=== PATIENT | male | born 1990 | race Two or more races ===

== ENCOUNTER → 2019-06-30 | Outpatient (CLI) | payer OTHER | END | disposition home or self-care (01) | LOC: LAB 14:42 | PROVIDERS: ATTEND Physician Assistant | DX: Z03.818 Encounter for observation for suspected exposure to other biological agents ruled out (principal) ==

== ENCOUNTER 2024-10-01 06:09 | Inpatient (IN) | payer BC, OTHER ==
[~2024-10-01] VITALS: Ht 180.3 cm; Wt 78.8 kg
--- NOTE | 2024-10-01 07:13 | ED.PDOC ---
History of Present Illness HPI Comments 34-year-old male complaining of abdominal pain which started yesterday progress to this morning. He did finish his work shift. Nausea but no vomiting or diarrhea. Pain is mostly in the right lower quadrant. 08/14. Never had this kind of symptom in the past. Denies any other past medical surgical history. Chief Complaint: Abdominal Pain Time Seen by MD: 06:37 Reviewed Notes: Nurses Notes, Medications, Allergies Allergies: Coded Allergies: NO KNOWN ALLERGIES (Unverified , 10/01/24) Home Meds No Active Prescriptions or Reported Meds Information Source: Patient Mode of Arrival: Ambulatory Severity: Moderate Timing: Days Duration: Since onset Past Medical History PAST MEDICAL HISTORY: Denies Surgical History: Denies all surgeries Social History Smoker: Non-Smoker Alcohol: Denies ETOH Use Drugs: Denies Drug Use Constitutional: denies: chills, diaphoresis, fatigue, fever, malaise, sweats, weakness, others EENTM: denies: blurred vision, double vision, ear bleeding, ear discharge, ear drainage, ear pain, ear ringing, eye pain, eye redness, hearing loss, mouth pain, mouth swelling, nasal discharge, nose bleeding, nose congestion, nose pain, photophobia, tearing, throat pain, throat swelling, voice changes, others Respiratory: denies: cough, hemoptysis, orthopnea, SOB at rest, shortness of breath, SOB with excertion, stridor, wheezing, others Gastrointestinal: reports: abdominal pain, nausea; denies: abdomen distended, blood streaked bowels, constipated, diarrhea, dysphagia, difficulty swallowing, hematemesis, melena, poor appetite, poor fluid intake, rectal bleeding, rectal pain, vomiting, others Genitourinary: denies: burning, dysuria, flank pain, frequency, hematuria, incontinence, penile discharge, penile sore, pain, testicle pain, testicle swelling, urgency, others Neurological: denies: dizziness, fainting, headache, left sided numbness, left sided weakness, numbness, paresthesia, pre-existing deficit, right sided numbness, right sided weakness, seizure, speech problems, tingling, tremors, weakness, others Musculoskeletal: denies: back pain, gout, joint pain, joint swelling, muscle pain, muscle stiffness, neck pain, others Integumetry: denies: bruises, change in color, change in hair/nails, dryness, laceration, lesions, lumps, rash, wounds, others Allergic/Immunocompromised: denies: Difficulty Healing, Frequent Infections, Hives, Itching, others Hematologic/Lymphatic: denies: anemia, blood clots, easy bleeding, easy bruising, swollen glands, others Endocrine: denies: excessive hunger, excessive sweating, excessive thirst, excessive urination, flushing, intolerance to cold, intolerance to heat, unexplained weight gain, unexplained weight loss, others Psychiatric: denies: anxiety, bipolar disorder, depression, hopeless, panic disorder, schizophrenia, sleepless, suicidal, others Physical Exam General Appearance: Moderate Distress HEENT: Normal ENT Inspection, Pharynx Normal, TMs Normal Neck: Full Range of Motion, Non-Tender, Normal, Normal Inspection Respiratory: Chest Non-Tender, Lungs Clear, No Accessory Muscle Use, No Respiratory Distress, Normal Breath Sounds Cardiovascular: No Edema, No JVD, No Murmur, No Gallop, Normal Peripheral Pulses, Regular Rate/Rhythm Breast Exam: Deferred Gastrointestinal: Diffuse, No Organomegaly, No Pulsatile Mass, Normal Bowel Sounds, Soft Genitalia: Deferred Pelvic: Deferred Rectal: Deferred Extremities: No calf tenderness, Normal capillary refill, Normal inspection, Normal range of motion, Non-tender, No pedal edema Musculoskeletal : Apperance: Normal Neurologic: Alert, tap builder II-XII nml as Tested, No Motor Deficits, Normal Affect, Normal Mood, No Sensory Deficits Cerebellar Function: Normal Reflexes: Normal Skin: Dry, Normal Color, Warm Peripheral Pulses: 3+ Radial (R), 3+ Radial (L) Lymphatic: No Adenopathy Was a procedure done? Was a procedure done?: No Differential Dx Considerations may include: Anemia Electrolyte imbalance X-Ray, Labs, Meds, VS Vital Signs Date Time Temp Pulse Resp B/P (MAP) Pulse Ox O2 Delivery O2 Flow Rate FiO2 10/01/24 14:00 75 12 100/54 (69) 95 10/01/24 13:00 78 15 93/53 (66) 95 10/01/24 12:00 72 12 97/56 (70) 97 10/01/24 11:45 70 13 98/57 (71) 99 10/01/24 11:45 70 13 99 Room Air* 0 21 10/01/24 08:53 87 18 99 Room Air* 0 21 10/01/24 08:53 97.9 86 18 122/81 (95) 99 97.9 10/01/24 07:46 99 18 106/75 10/01/24 06:10 98.3 99 18 106/75 99 98.3 Lab Test 10/01/24 07:21 Range/Units White Blood Count 11.9 H 4.4-10.8 10^3/uL Red Blood Count 4.64 4.5-5.90 10^6/uL Hemoglobin 14.5 13.5-17.5 g/dL Hematocrit 42.0 41.0-53.0 % Mean Corpuscular Volume 90.5 80.0-100.0 fL Mean Corpuscular Hemoglobin 31.2 28.0-32.0 pg Mean Corpuscular Hemoglobin Concent 34.5 32.0-36.0 g/dL Red Cell Distribution Width 13.1 11.8-14.3 % Platelet Count 185 140-450 10^3/uL Mean Platelet Volume 10.0 6.9-10.8 fL Neutrophils (%) (Auto) 69.9 37.0-80.0 % Lymphocytes (%) (Auto) 17.1 10.0-50.0 % Monocytes (%) (Auto) 12.4 H 0.0-12.0 % Eosinophils (%) (Auto) 0.1 0.0-7.0 % Basophils (%) (Auto) 0.5 0.0-2.0 % Neutrophils # (Auto) 8.3 1.6-8.6 10 ^3/uL Lymphocytes # (Auto) 2.0 0.4-5.4 10 ^3/uL Monocytes # (Auto) 1.5 H 0-1.3 10 ^3/uL Eosinophils # (Auto) 0 0-0.8 10 ^3/uL Basophils # (Auto) 0.1 0-0.2 10 ^3/uL Nucleated Red Blood Cells 0.0 % Sodium Level 138 136-145 mmol/L Potassium Level 4.0 3.5-5.1 mmol/L Chloride Level 101 98-107 mmol/L Carbon Dioxide Level 27 20-31 mmol/L Anion Gap 10 5-15 Blood Urea Nitrogen 10 9-23 mg/dL Creatinine 1.08 0.700-1.30 mg/dL Glomerular Filtration Rate Calc 94 >90 mL/min BUN/Creatinine Ratio 9.3 L 10.0-20.0 Serum Glucose 105 74-106 mg/dL Calcium Level 9.3 8.7-10.4 mg/dL Current Medications Medications (Trade) Dose Ordered Sig/Sharmaine Route Start Time Stop Time Status Last Admin Cefazolin Sodium 50 ml @ 100 mls/hr ONCE ONCE IV 10/01/24 07:15 10/01/24 07:44 DC 10/01/24 07:46 Metronidazole 100 ml @ 100 mls/hr ONCE ONCE IV 10/01/24 07:15 10/01/24 08:14 DC 10/01/24 07:46 Sodium Chloride 1,000 ml @ 1,000 mls/hr Q1H ONCE IV 10/01/24 07:15 10/01/24 08:14 DC 10/01/24 07:37 Morphine Sulfate 4 mg ONCE ONCE IV 10/01/24 07:30 10/01/24 07:31 DC 10/01/24 07:46 Ondansetron HCl (Zofran) 4 mg ONCE ONCE IV 10/01/24 07:30 10/01/24 07:31 DC 10/01/24 07:44 Patient alert. Complaining of abdominal pain. Vitals stable. Answering questions. Abdomen is soft. CT scan of the abdomen does show a appendicitis. Establish intravenous access. Was given fluids pain Was given morphine. Was given Zofran. Explained to the patient. Continue monitoring. Time of 1ST Reevaluation: 07:11 Reevaluation 1ST: Unchanged Patient Education/Counseling: Diagnosis, Treatment, Prognosis, Need For Follow Up Family Education/Counseling: No Family Present SEPSIS Sepsis Screen Date sepsis recognized/suspect: Oct 01, 2024 Time Sepsis recognized/suspect: 613 Recent Procedure: No On Antibiotic Therapy: No Respiratory Rate >20: No Heart Rate >90: Yes Temp<36 C (96.8 F) or >38.3 C: No SBP <90 or MAP <65 mmHG: No New Acute Mental Status Change: No Is the patient on CPAP, BIPAP,: No Physician Orders Ct Ab Pel Wo Con-No Oral Or Iv (10/01/24 06:37) * Surgical Consult (10/01/24 13:36) Vital Signs Date Time Temp Pulse Resp B/P (MAP) Pulse Ox O2 Delivery O2 Flow Rate FiO2 10/01/24 14:00 75 12 100/54 (69) 95 10/01/24 13:00 78 15 93/53 (66) 95 10/01/24 12:00 72 12 97/56 (70) 97 10/01/24 11:45 70 13 98/57 (71) 99 10/01/24 11:45 70 13 99 Room Air* 0 21 10/01/24 08:53 87 18 99 Room Air* 0 21 10/01/24 08:53 97.9 86 18 122/81 (95) 99 97.9 10/01/24 07:46 99 18 106/75 10/01/24 06:10 98.3 99 18 106/75 99 98.3 Laboratory Tests Test 10/01/24 07:21 White Blood Count 11.9 10^3/uL (4.4-10.8) H Medications Medications Dose Ordered Sig/Sharmaine Route Start Time Stop Time Status Last Admin Dose Admin Cefazolin Sodium 50 ml @ 100 mls/hr ONCE ONCE IV 10/01/24 07:15 10/01/24 07:44 DC 10/01/24 07:46 Metronidazole 100 ml @ 100 mls/hr ONCE ONCE IV 10/01/24 07:15 10/01/24 08:14 DC 10/01/24 07:46 Morphine Sulfate 4 mg ONCE ONCE IV 10/01/24 07:30 10/01/24 07:31 DC 10/01/24 07:46 Ondansetron HCl 4 mg ONCE ONCE IV 10/01/24 07:30 10/01/24 07:31 DC 10/01/24 07:44 Sodium Chloride 1,000 ml @ 1,000 mls/hr Q1H ONCE IV 10/01/24 07:15 10/01/24 08:14 DC 10/01/24 07:37 Departure 1 Departure Time of Disposition: 17:55 Impression: Primary Impression: Acute appendicitis Qualified Codes: K35.80 - Unspecified acute appendicitis Disposition: 09 ADMITTED INPATIENT Admit to: Med Surg Condition: Guarded e-Prescriptions No Active Prescriptions or Reported Meds Critical Care Note Critical Care Time?: Yes (90 min-critical care time only) Stability Stability form required: No Heart Score Heart Score: Heart Score Response (Comments) Value History N/A 0 EKG N/A 0 Age N/A 0 Risk Factors N/A 0 Troponin N/A 0 Total 0 I personally scribed for ALANIS CHEEK MD ([email or web address]) on 10/01/24 at 07:49. Electronically submitted by Monty Davis ([email or web address]). ALANIS CHEEK MD Oct 01, 2024 07:13
--- NOTE | 2024-10-01 07:17 | DVH ---
CLINICAL INFORMATION: Right lower quadrant pain. TECHNIQUE: Axial CT images of the abdomen and pelvis were obtained without IV contrast. Coronal and s agittal reformatted images were obtained, reviewed, and stored. Evaluation of the parenchymal organs is limited without IV contrast. Oral contrast was administered prior to the examination. All CT scans at this medical facility are performed using dose modulation techniques as appropriate to a performe d exam including the following: Automated exposure control was utilized; adjustment of the MA and/or KV according to patient size; and use of iterative reconstruction technique. CTDIvol = 7.29 mGy DLP = 391.57 mGy-cm COMPARISON: None FINDINGS: Lung bases: Lung bases are clear. Liver: Grossly unremarkable in its noncontrast enhanced appearance. No abnormal density or focal lesi on identified. Biliary: No calcified gallstones or biliary ductal dilatation. Spleen: Unremarkable. Pancreas: Grossly unremarkable in its noncontrast enhanced appearance. Adrenal glands: Unremarkable. No mass. Kidneys: No hydronephrosis. No renal or ureteral calculi. Aorta/Vascular: No aneurysm or significant calcification. Retroperitoneum: No mass or lymphadenopathy. Bowel/mesentery: No small bowel obstruction. No free air or free fluid. Appendix is abnormally thicke ghislaine, measuring up to 1.4 cm in diameter with moderate periappendiceal stranding consistent with acute appendicitis in the appropriate clinical setting. Mild wall thickening at the adjacent portions of t he cecum, likely inflammatory in nature. No evidence of abscess or perforation. Pelvic organs: Grossly unremarkable. Bladder: Unremarkable. No mass. Abdominal wall: No mass or hernia. Bones: No acute fracture or suspicious intraosseous lesion. IMPRESSION: Findings consistent with acute, uncomplicated appendicitis. Critical findings Critical Result: Acute appendicitis. Findings discussed with Dr. Jeffrey, at 10/01/2024 09:12 AM CDT, and acknowledged receipt and underst anding of the findings. ..
[2024-10-01 07:37] LABS: Chloride 101 mmol/L (98-107); Potassium 4.0 mmol/L (3.5-5.1); Sodium 138 mmol/L (136-145)
[2024-10-01] MEDS: SODIUM CHLORIDE 0.9% 1,000 ML IV ONE ×2 (07:37→16:33)
[2024-10-01 07:38] LABS: Anion Gap 10 (5-15); Calcium 9.3 mg/dL (8.7-10.4); Carbon Dioxide 27 mmol/L (20-31)
[2024-10-01 07:43] LABS: BUN/Creatinine Ratio 9.3 (10.0-20.0); Blood Urea Nitrogen 10 mg/dL (9-23); Glucose 105 mg/dL (74-106)
[2024-10-01] MEDS: ONDANSETRON HCL 4 MG/2 ML VIAL IV ONE (07:44)
[2024-10-01] MEDS: MORPHINE SULFATE 4 MG/ML SYR/VIAL IV ONE (07:46)
[2024-10-01] MEDS: ceFAZolin 1GM/50ML 50 ML IV ONE (07:46)
[2024-10-01 07:48] LABS: Hematocrit 42.0 % (41.0-53.0); Hemoglobin 14.5 g/dL (13.5-17.5); Mean Corpuscular Hemoglobin 31.2 pg (28.0-32.0); Mean Corpuscular Volume 90.5 fL (80.0-100.0); Nucleated Red Blood Cells % 0.0 %
[2024-10-01 08:53] VITALS: PULSE 87; RESP 18; O2SAT 99
[2024-10-01 11:45] VITALS: PULSE 70; RESP 13; O2SAT 99
--- NOTE | 2024-10-01 15:44 | DVHHP2 ---
History of Present Illness Reason for Visit: Abdominal pain History of Present Illness Vinay Russell is a 34-year-old male with no significant past medical history who came to the hospital for abdominal pain. Patient states his pain began yesterday at 1000. It was in his RLQ, not severe, so he thought it would get better. He worked last night. The pain continued through the night with associated nausea. when he finished his shift he went to ER to be evaluated due to pain worsening and nausea. Past Surgical History: None Smoke: No ALCOHOL: none Drugs: None Lives: with Family Domestic Violence: Neg Review of Systems Constitutional: No: Fever, Chills, Sweats, Weakness, Malaise, Other Eyes: No: Pain, Vision change, Conjunctivae inflammation, Eyelid inflammation, Other, Redness ENT: No: Ear pain, Ear discharge, Nose pain, Nose discharge, Nose congestion, Mouth pain, Mouth swelling, Throat pain, Throat swelling, Other Respiratory: No: Cough, Dry, Shortness of breath, SOB with excertion, Wheezing, Hemoptysis, Pleuritic Pain, Sputum, Wheezing, Other Cardiovascular: No: Chest Pain, Palpitations, Orthopnea, Paroxysmal Noc. Dyspnea, Edema, Lt Headedness, Other Gastrointestinal: Nausea, Abdominal Pain; No: Vomiting, Diarrhea, Constipation, Melena, Hematochezia, Other Genitourinary: No Dysuria, No Frequency, No Incontinence, No Hematuria, No Retention, No Other Musculoskeletal: No: other, neck pain, shoulder pain, arm pain, back pain, hand pain, leg pain, foot pain Skin: No: Rash, Lesions, Jaundice, Bruising, Other Neurological: No: Weakness, Numbness, Incoordination, Change in speech, Confusion, Seizures, Other Allergies: Coded Allergies: NO KNOWN ALLERGIES (Unverified , 10/01/24) Exam Vital Signs Vital Signs Date Time Temp Pulse Resp B/P (MAP) Pulse Ox O2 Delivery O2 Flow Rate FiO2 10/01/24 11:45 70 13 98/57 (71) 99 10/01/24 11:45 Room Air* 0 21 10/01/24 08:53 97.9 97.9 General Appearance: Alert, Oriented X3, Cooperative, moderate distress HEENT: Atraumatic, PERRLA Respiratory: Clear to auscultation, Normal air movement Cardiovascular: Regular rate, Normal S1, Normal S2, No murmurs Abdominal: Normal bowel sounds, Other (RLQ abdominal pain, nausea) Extremities: No clubbing, No cyanosis, No edema, Normal pulses, No tenderness /swelling Skin: No rashes, No breakdown, No significant lesion Neuro: Normal gait, Normal speech, Strength at 5/5 X4 ext Psych/Mental Status: Mental status NL, Mood NL Labs/Xrays Labs Test 10/01/24 07:21 Range/Units White Blood Count 11.9 H 4.4-10.8 10^3/uL Red Blood Count 4.64 4.5-5.90 10^6/uL Hemoglobin 14.5 13.5-17.5 g/dL Hematocrit 42.0 41.0-53.0 % Mean Corpuscular Volume 90.5 80.0-100.0 fL Mean Corpuscular Hemoglobin 31.2 28.0-32.0 pg Mean Corpuscular Hemoglobin Concent 34.5 32.0-36.0 g/dL Red Cell Distribution Width 13.1 11.8-14.3 % Platelet Count 185 140-450 10^3/uL Mean Platelet Volume 10.0 6.9-10.8 fL Neutrophils (%) (Auto) 69.9 37.0-80.0 % Lymphocytes (%) (Auto) 17.1 10.0-50.0 % Monocytes (%) (Auto) 12.4 H 0.0-12.0 % Eosinophils (%) (Auto) 0.1 0.0-7.0 % Basophils (%) (Auto) 0.5 0.0-2.0 % Neutrophils # (Auto) 8.3 1.6-8.6 10 ^3/uL Lymphocytes # (Auto) 2.0 0.4-5.4 10 ^3/uL Monocytes # (Auto) 1.5 H 0-1.3 10 ^3/uL Eosinophils # (Auto) 0 0-0.8 10 ^3/uL Basophils # (Auto) 0.1 0-0.2 10 ^3/uL Nucleated Red Blood Cells 0.0 % Sodium Level 138 136-145 mmol/L Potassium Level 4.0 3.5-5.1 mmol/L Chloride Level 101 98-107 mmol/L Carbon Dioxide Level 27 20-31 mmol/L Anion Gap 10 5-15 Blood Urea Nitrogen 10 9-23 mg/dL Creatinine 1.08 0.700-1.30 mg/dL Glomerular Filtration Rate Calc 94 >90 mL/min BUN/Creatinine Ratio 9.3 L 10.0-20.0 Serum Glucose 105 74-106 mg/dL Calcium Level 9.3 8.7-10.4 mg/dL TECHNIQUE: Axial CT images of the abdomen and pelvis were obtained without IV contrast. FINDINGS: Lung bases: Lung bases are clear. Liver: Grossly unremarkable in its noncontrast enhanced appearance. No abnormal density or focal lesion identified. Biliary: No calcified gallstones or biliary ductal dilatation. Spleen: Unremarkable. Pancreas: Grossly unremarkable in its noncontrast enhanced appearance. Adrenal glands: Unremarkable. No mass. Kidneys: No hydronephrosis. No renal or ureteral calculi. Aorta/Vascular: No aneurysm or significant calcification. Retroperitoneum: No mass or lymphadenopathy. Bowel/mesentery: No small bowel obstruction. No free air or free fluid. Appendix is abnormally thickened, measuring up to 1.4 cm in diameter with moderate periappendiceal stranding consistent with acute appendicitis in the appropriate clinical setting. Mild wall thickening at the adjacent portions of the cecum, likely inflammatory in nature. No evidence of abscess or perforation. Pelvic organs: Grossly unremarkable. Bladder: Unremarkable. No mass. Abdominal wall: No mass or hernia. Bones: No acute fracture or suspicious intraosseous lesion. IMPRESSION: Findings consistent with acute, uncomplicated appendicitis. Critical findings Critical Result: Acute appendicitis. Findings discussed with Dr. Jeffrey, at 10/01/2024 09:12 AM CDT, and acknowledged receipt and understanding of the findings. SEPSIS Sepsis Screen Date sepsis recognized/suspect: Oct 01, 2024 Time Sepsis recognized/suspect: 613 Recent Procedure: No On Antibiotic Therapy: No Respiratory Rate >20: No Heart Rate >90: Yes Temp<36 C (96.8 F) or >38.3 C: No SBP <90 or MAP <65 mmHG: No New Acute Mental Status Change: No Is the patient on CPAP, BIPAP,: No Physician Orders * Surgical Consult (10/01/24 13:36) Admit (10/01/24 15:35) Code Status (10/01/24 15:35) Hydrocodone-Acet 5/325mg Tab (Leslie 5/32 (10/01/24 15:45) Ondansetron Hcl (Zofran) (10/01/24 15:45) Docusate Sodium Capsule (Colace Capsule) (10/01/24 15:45) Complete Blood Count (10/02/24 04:00) Comprehensive Metabolic Panel (10/02/24 04:00) Npo (Nothing By Mouth) Diet (10/01/24 Dinner) Condition: Serious (10/01/24 15:35) Acetaminophen Tablet (Tylenol Tablet) (10/01/24 15:45) Morphine Sulfate Injection (10/01/24 15:45) NS (10/01/24 15:45) NS (10/01/24 15:45) Metronidazole Ivpb Flagyl (10/01/24 22:00) Ceftriaxone Ivpb Rocephin (10/02/24 09:00) Metoclopramide Injection (Reglan Injecti (10/01/24 15:45) Vital Signs Date Time Temp Pulse Resp B/P (MAP) Pulse Ox O2 Delivery O2 Flow Rate FiO2 10/01/24 11:45 70 13 98/57 (71) 99 10/01/24 11:45 70 13 99 Room Air* 0 21 10/01/24 08:53 87 18 99 Room Air* 0 21 10/01/24 08:53 97.9 86 18 122/81 (95) 99 97.9 10/01/24 07:46 99 18 106/75 Laboratory Tests Test 10/01/24 07:21 White Blood Count 11.9 10^3/uL (4.4-10.8) H Medications Medications Dose Ordered Sig/Sharmaine Route Start Time Stop Time Status Last Admin Dose Admin Cefazolin Sodium 50 ml @ 100 mls/hr ONCE ONCE IV 10/01/24 07:15 10/01/24 07:44 DC 10/01/24 07:46 100 MLS/HR Metronidazole 100 ml @ 100 mls/hr ONCE ONCE IV 10/01/24 07:15 10/01/24 08:14 DC 10/01/24 07:46 100 MLS/HR Morphine Sulfate 4 mg ONCE ONCE IV 10/01/24 07:30 10/01/24 07:31 DC 10/01/24 07:46 4 MG Ondansetron HCl 4 mg ONCE ONCE IV 10/01/24 07:30 10/01/24 07:31 DC 10/01/24 07:44 4 MG Sodium Chloride 1,000 ml @ 1,000 mls/hr Q1H ONCE IV 10/01/24 07:15 10/01/24 08:14 DC 10/01/24 07:37 1,000 MLS/HR Assessment/Plan Assessment/Plan Assessment: Acute appendicitis, Plan: Admit to Med-Surg, Surgical consult, IV antibiotics, IV hydration, Pain management, Antiemetics, NPO, Plan discussed with: Patient My Orders Orders - LILLIAM OSCAR Procedure Category Date Status Time * Surgical Consult CONS 10/01/24 Transmitted 13:36 Admit ADMIT 10/01/24 Transmitted 15:35 Code Status CODE 10/01/24 Transmitted 15:35 Hydrocodone-Acet PHA 10/01/24 Transmitted 5/325mg Tab (Leslie 15:45 Ondansetron Hcl PHA 10/01/24 Transmitted (Zofran) 15:45 Docusate Sodium PHA 10/01/24 Transmitted Capsule (Colace 15:45 Complete Blood Count LAB 10/02/24 Verified 04:00 Comprehensive LAB 10/02/24 Verified Metabolic Panel 04:00 Npo (Nothing By DIET 10/01/24 Transmitted Mouth) Diet Dinner Condition: Serious BROWN 10/01/24 Transmitted 15:35 Acetaminophen Tablet PHA 10/01/24 Transmitted (Tylenol Tablet) 15:45 Morphine Sulfate PHA 10/01/24 Transmitted Injection 15:45 NS PHA 10/01/24 Transmitted 15:45 NS PHA 10/01/24 Transmitted 15:45 Metronidazole Ivpb PHA 10/01/24 Transmitted Flagyl 22:00 Ceftriaxone Ivpb PHA 10/02/24 Transmitted Rocephin 09:00 Metoclopramide PHA 10/01/24 Transmitted Injection (Reglan 15:45 Date of Service: Oct 01, 2024 Billing Provider: LILLIAM OSCAR Common Visit Codes: [id number] INP/OBS CARE (MOD) LILLIAM OSCAR Oct 01, 2024 15:44
[2024-10-01] MEDS ORDERED: ONDANSETRON HCL 4 MG/2 ML VIAL IV PRN (15:45)
[2024-10-01] MEDS ORDERED: METOCLOPRAMIDE HCL 5MG/ml INJ 2ml VIAL IV PRN (15:45)
[2024-10-01] MEDS ORDERED: ACETAMINOPHEN 325 MG TAB PO PRN (15:45)
[2024-10-01] MEDS: SODIUM CHLORIDE 0.9% 1,000 ML IV SCH (15:45)
[2024-10-01] MEDS ORDERED: DOCUSATE SOD 100 MG CAP PO PRN (15:45)
[2024-10-01] MEDS ORDERED: MORPHINE SULFATE INJ 2 MG/ml SYRG IV PRN (15:45)
[2024-10-01 17:30] VITALS: RESP 18
[2024-10-01 17:31] VITALS: BP 106/71; PULSE 82; RESP 16; TEMP 98.3; O2SAT 100
[2024-10-01 19:52] LABS: INR 1.07 (0.9-1.15); Partial Thromboplastin Time 33.9 SEC (24.5-34.5); Prothrombin Time 11.3 sec (9.3-11.8)
[2024-10-01 20:00] VITALS: RESP 17
[2024-10-01 21:00] VITALS: BP 100/69; PULSE 74; RESP 18; TEMP 98; O2SAT 100
[2024-10-02] VITALS (9 sets, daily range): BP systolic 99–112; BP diastolic 62–73; PULSE 75–92; RESP 14–20; TEMP 97.2–98.3; O2SAT 95–100
[2024-10-02] MEDS ORDERED: HYDROmorphone HCL 2 MG/ML VL/or syr IV PRN ×2 (07:15)
[2024-10-02] MEDS ORDERED: MORPHINE SULFATE 4 MG/ML SYR/VIAL IV PRN (07:15)
[2024-10-02] MEDS ORDERED: MORPHINE SULFATE INJ 2 MG/ml SYRG IV PRN (07:15)
[2024-10-02] MEDS: KETOROLAC TROMETH 30 MG/ML 1ML VIAL IV ONE (07:15)
[2024-10-02] MEDS: ROCURONIUM 10MG/ML 10ML VIAL IV ONE (07:18)
[2024-10-02] MEDS: SUCCINYLCHOLINE CHLORIDE 20 MG/ML 10ML VIAL IV ONE (07:18)
[2024-10-02] MEDS ORDERED: LIDOCAINE 2% TOPICAL JELLY 5 ML URJT TOP ONE (07:21)
[2024-10-02] MEDS ORDERED: HYDROmorphone HCL 2 MG/ML VL/or syr ONE (07:21)
[2024-10-02] MEDS ORDERED: PROPOFOL 10 MG/ML 20 ML IV ONE (07:21)
[2024-10-02] MEDS ORDERED: MIDAZOLAM HCL 2MG/2ML 2ml VIAL (1mg/ml) ONE (07:21)
[2024-10-02] MEDS ORDERED: LIDOCAINE 1% INJ PF 5ML AMP ONE (07:21)
[2024-10-02] MEDS ORDERED: KETAMINE 50mg/ML 1ml syringe ONE (07:21)
[2024-10-02] MEDS ORDERED: ONDANSETRON HCL 4 MG/2 ML VIAL ONE (07:21)
[2024-10-02] MEDS ORDERED: SODIUM CHLORIDE LOCK 10 ML ONE (07:21)
[2024-10-02] MEDS ORDERED: fentaNYL CITRATE 100 MCG/2 ML VL ONE (07:21)
[2024-10-02] MEDS: ceFAZolin 2 GM/D5W50ml 50 ML IV ONE (07:34)
--- NOTE | 2024-10-02 07:36 | DVHINCON2 ---
Date of service: Oct 02, 2024 Reason for Consultation ACUTE APPENDICITIS History of Present Illness History Source: Patient, MD Notes Exam Limitations: No limitations HPI 34 year old male presented to the ER with right lower quadrant pain associated with nausea. Patient states the pain stated early mornig a couple days agao. The pain and nausea progressively became worse through the day. Home Meds No Active Prescriptions or Reported Meds Chief Complaint of Abdominal/F: Abdominal pain, Nausea Location of Abdominal Onset: RLQ Abdominal Pain Radiation: No radiation Timing of Abdominal Pain: Getting worse Past Medical History Cardiac: No pertinent Hx Pulmonary: No pertinent Hx Central Nervous System: No pertinent Hx GI: No pertinent Hx Hemotology/Oncology: No pertinent Hx Hepatobiliary: No pertinent Hx Psychiatric: No pertinent Hx Musculoskeletal: No pertinent Hx Rheumotologic: No pertinent Hx Infectious Disease: No peritnent Hx ENT: No pertinent Hx Renal/: No pertinent Hx Endocrine: No pertinent Hx Dermatology: No pertinent Hx Past Surgical History: No pertinent Hx Family History: No pertinent Hx Patient Family History: Patient reports no known family medical history. Smoker: No Hx (Negative) Alocohol: None Drugs: None Lives with: With family Review of Systems Constitutional: No symptom reported Ears, Nose, & Throat: No symptom reported Eyes: No symptom reported Pulmonary/Respiratory: No symptom reported Cardiovascular: No symptom reported Gastrointestinal: Nausea, Abdominal Pain Genitourinary: No symptom reported Musculoskeletal: No symptom reported Skin: No symptom reported Psychiatric: No symptom reported Endocrine: No symptom reported Hemotologic/Lymphatic: No symptom reported H&P Exam Vital Signs Vital Signs Date Time Temp Pulse Resp B/P (MAP) Pulse Ox O2 Delivery O2 Flow Rate FiO2 10/02/24 05:00 98.3 77 17 105/68 (80) 100 98.3 10/01/24 20:00 Room Air* 0 21 General Appeara: Well developed, Well nourished Head Exam: Normal inspection Neck Exam: Normal inspection Eye Exam: bilateral eye PERRL Nasal Exam: Normal inspection Mouth: Normal Inspection Pulmonary/Respiratory: Normal inspection, Normal breath sounds 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5 80.0-100.0 fL Mean Corpuscular Hemoglobin 31.2 28.0-32.0 pg Mean Corpuscular Hemoglobin Concent 34.5 32.0-36.0 g/dL Red Cell Distribution Width 13.1 11.8-14.3 % Platelet Count 185 140-450 10^3/uL Mean Platelet Volume 10.0 6.9-10.8 fL Neutrophils (%) (Auto) 69.9 37.0-80.0 % Lymphocytes (%) (Auto) 17.1 10.0-50.0 % Monocytes (%) (Auto) 12.4 H 0.0-12.0 % Eosinophils (%) (Auto) 0.1 0.0-7.0 % Basophils (%) (Auto) 0.5 0.0-2.0 % Neutrophils # (Auto) 8.3 1.6-8.6 10 ^3/uL Lymphocytes # (Auto) 2.0 0.4-5.4 10 ^3/uL Monocytes # (Auto) 1.5 H 0-1.3 10 ^3/uL Eosinophils # (Auto) 0 0-0.8 10 ^3/uL Basophils # (Auto) 0.1 0-0.2 10 ^3/uL Nucleated Red Blood Cells 0.0 % Sodium Level 138 136-145 mmol/L Potassium Level 4.0 3.5-5.1 mmol/L Chloride Level 101 98-107 mmol/L Carbon Dioxide Level 27 20-31 mmol/L Anion Gap 10 5-15 Blood Urea Nitrogen 10 9-23 mg/dL Creatinine 1.08 0.700-1.30 mg/dL Glomerular Filtration Rate Calc 94 >90 mL/min BUN/Creatinine Ratio 9.3 L 10.0-20.0 Serum Glucose 105 74-106 mg/dL Calcium Level 9.3 8.7-10.4 mg/dL Assessment/Plan Plan patient complaint of right lower quadrant pain with nausea for the past two days patient exam by dr. Russ right lower quadrant tender to palpation review of notes and image report Findings consistent with acute, uncomplicated appendicitis. Plan: Laparoscopic possibly open appendectomy today Plan discussed with: Patient, Other (Dr. Russ ) Visit Coding Surgery Date of Service if different f: Oct 02, 2024 Billing Provider: DOMINICK RUSS MD Surgery Visit Codes: 66864 - INP CONSULT <80 MIN KORI SCOTT NP Oct 02, 2024 07:36
[2024-10-02] MEDS: BUPIVACAINE 0.5% P/F INJ 10 ML VIAL ONE (08:41)
[2024-10-02] MEDS: LIDOCAINE W/ EPINEPHRINE 1% 20ML VIAL ONE (08:41)
--- NOTE | 2024-10-02 09:19 | DVHOP ---
DATE OF SURGERY: 10/02/2024 PREOPERATIVE DIAGNOSIS: Acute suppurative appendicitis. POSTOPERATIVE DIAGNOSIS: Acute suppurative appendicitis. SURGEON: Dougie Russ MD [employer] MANAGER: Khari Montiel NP ANESTHESIA: General endotracheal. ANESTHESIOLOGIST: Dr. Zhu. PROCEDURES: * Laparoscopy. * Laparoscopic appendectomy. DESCRIPTION OF PROCEDURE: Under general endotracheal anesthesia with the patient's skin prepped and draped, a supraumbilical incision was made and Veress needle inserted into the peritoneal cavity by the hanging drop technique in order to establish pneumoperitoneum to 15 mmHg pressure by insufflation with carbon dioxide. With the abdomen fully distended, the needle was removed and replaced with a 5 mm trocar port through which a 0-degree viewing laparoscope was inserted and under direct vision, 5 and 10 mm ports inserted through the midline abdominal wall infraumbilical skin and subxiphoid skin, respectively. Instrumentation was then introduced and laparoscopy was performed revealing no obvious unexpected pathology. The appendix was acutely inflamed. It was non-attached to surrounding structures. It was placed on tension by use of a Angelina grasper and traced down to its confluence with the cecum. At the base of the appendix, at the confluence with the cecum, it was cross-clamped and divided with an Endo-ELSY stapler equipped with vascular romulo. The fully severed appendix and mesoappendix were then removed from the peritoneal cavity by placement in a specimen extraction bag, which was retrieved through the infraumbilical 10 mm port site. Subsequently, the right lower quadrant was profusely irrigated. Irrigant was aspirated. Hemostasis was meticulously accomplished and found to be complete. At the termination of the procedure, there was no evidence of bleeding from either the appendicectomy site or from the port sites. Instrumentation was withdrawn. Pneumoperitoneum was evacuated. Fascial defect closed using 0 Vicryl. Wounds approximated using Monocryl sutures, Dermabond glue, and Steri-Strips. The patient remained stable throughout the procedure and left the operating room following an accurate needle and sponge counts. His girlfriend, Macrina, was thoroughly informed by calling [phone]. Dougie Russ MD PF/EDWIN TID: [id number] RECEIPT: [id number]
[2024-10-02] MEDS: METOCLOPRAMIDE HCL 5MG/ml INJ 2ml VIAL IV PRN (09:29)
[2024-10-02 11:10] LABS: Hematocrit 38.0 % (41.0-53.0); Hemoglobin 12.8 g/dL (13.5-17.5); Mean Corpuscular Hemoglobin 31.0 pg (28.0-32.0); Mean Corpuscular Volume 92.3 fL (80.0-100.0); Nucleated Red Blood Cells % 0.0 %
[2024-10-02 11:24] LABS: Alanine Aminotransferase 21 U/L (7-40); Albumin 4.0 g/dL (3.2-4.8); Alkaline Phosphatase 56 U/L (46-116); Anion Gap 11 (5-15); BUN/Creatinine Ratio 13.3 (10.0-20.0); Blood Urea Nitrogen 13 mg/dL (9-23); Carbon Dioxide 22 mmol/L (20-31); Chloride 104 mmol/L (98-107); Glucose 105 mg/dL (74-106); Potassium 4.2 mmol/L (3.5-5.1); Sodium 137 mmol/L (136-145); Total Protein 6.4 g/dL (5.7-8.2)
[2024-10-02 11:29] LABS: Bilirubin, Total 3.0 mg/dL (0.2-1.0); Calcium 8.3 mg/dL (8.7-10.4)
--- NOTE | 2024-10-02 16:17 | DVHPN2 ---
Subjective admitted for acute appendicitis Reviewed: Care Plan Changes from previous H/P or p: No Changes Eyes: No Pain, No Vision change, No Conjunctivae inflammation, No Eyelid inflammation, No Other, No Redness ENT: No Ear pain, No Ear discharge, No Nose pain, No Nose discharge, No Nose congestion, No Mouth pain, No Mouth swelling, No Throat pain, No Throat swelling, No Other Cardiovascular: No Chest Pain, No Palpitations, No Orthopnea, No Paroxysmal Noc. Dyspnea, No Edema, No Lt Headedness, No Other Respiratory: No Cough, No Dry, No Shortness of breath, No SOB with excertion, No Wheezing, No Hemoptysis, No Pleuritic Pain, No Sputum, No Other Gastrointestinal: Nausea; No Vomiting; Abdominal Pain; No Diarrhea, No Constipation, No Melena, No Hematochezia, No Other Genitourinary: No Dysuria, No Frequency, No Incontinence, No Hematuria, No Retention, No Other Musculoskeletal: No other, No neck pain, No shoulder pain, No arm pain, No back pain, No hand pain, No leg pain, No foot pain Skin: No Rash, No Lesions, No Jaundice, No Bruising, No Other Objective Vitals Vital Signs Date Time Temp Pulse Resp B/P (MAP) Pulse Ox O2 Delivery O2 Flow Rate FiO2 10/02/24 13:00 97.3 77 18 107/65 (79) 96 97.3 10/02/24 09:00 Room Air 0 10/02/24 09:00 95 Intake/Output Intake and Output 10/02/24 07:00 Intake Total 100 ml Balance 100 ml Intake Oral 0 ml IV Total 100 ml # Voids 3 Exam GEN: Alert and oriented CV: RRR Lung: CTAB abd: adominal binder ext: no edema Medications Current Medications Medications Dose Ordered Sig/Sharmaine Route Start Time Stop Time Status Last Admin Dose Admin Acetaminophen/ Hydrocodone Bitart 1 tab Q4HP PRN PO 10/01/24 15:45 Ondansetron HCl 4 mg Q4HP PRN IV 10/01/24 15:45 Docusate Sodium 100 mg BIDPRN PRN PO 10/01/24 15:45 Acetaminophen 650 mg Q6HP PRN PO 10/01/24 15:45 Morphine Sulfate 2 mg Q4HPRN PRN IV 10/01/24 15:45 Sodium Chloride 1,000 ml @ 100 mls/hr Q10H IV 10/01/24 15:45 10/01/24 15:45 100 MLS/HR Metronidazole 100 ml @ 100 mls/hr Q8HR IV 10/01/24 22:00 10/02/24 13:20 100 MLS/HR Ceftriaxone Sodium 50 ml @ 100 mls/hr DAILY@09 IV 10/02/24 09:00 10/02/24 11:08 100 MLS/HR Metoclopramide HCl 10 mg Q8HPRN PRN IV 10/01/24 15:45 Potassium Chloride/Dextrose/ Sod Cl 1,000 ml @ 120 mls/hr Q8H20M IV 10/02/24 09:00 Hold Potassium Chloride/Sodium Chloride 1,000 ml @ 100 mls/hr Q10H IV 10/02/24 09:00 Hold Laboratory Results Laboratory Tests 10/02/24 10:45 Chemistry Test 10/02/24 10:45 Albumin 4.0 g/dL (3.2-4.8) Calcium Level 8.3 mg/dL (8.7-10.4) L Total Protein 6.4 g/dL (5.7-8.2) Coagulation Test 10/01/24 19:05 Prothrombin Time 11.3 sec (9.3-11.8) Prothrombin Time INR 1.07 (0.9-1.15) Activated Partial Thromboplast Time 33.9 SEC (24.5-34.5) LFT Test 10/02/24 10:45 Alanine Aminotransferase (ALT) 21 U/L (7-40) Alkaline Phosphatase 56 U/L (46-116) Aspartate Amino Transferase (AST) 28 U/L (13-40) Total Bilirubin 3.0 mg/dL (0.2-1.0) H Assessment/Plan Assessment/Plan 34 yo M with: #Acute appendicitis -surgery consulted -Ceftriaxone, flagyl -Blood cx ordered, AM LABS Plan discussed with: Patient, Other (mother) Date of Service: Oct 02, 2024 Billing Provider: LISS SOTO MD Common Visit Codes: [id number] INP/OBS CARE(LOW) LISS SOTO MD Oct 02, 2024 16:17
[2024-10-02] MEDS: HYDROcodone-ACET 5/325MG TAB PO PRN (17:15)
[2024-10-02] MEDS: D5W/SOD CHL 0.45%/KCL 20MEQ 1,000 ML IV SCH (20:07)
[2024-10-02] MEDS: SOD CHL 0.45% WITH 20MEQ KCL 1,000 ML IV SCH (20:07)
[2024-10-03 01:00] VITALS: BP 113/78; PULSE 96; RESP 20; TEMP 98.1; O2SAT 98
[2024-10-03 05:00] VITALS: BP 108/71; PULSE 79; RESP 20; TEMP 97.8; O2SAT 99
[2024-10-03 08:10] LABS: Hematocrit 34.4 % (41.0-53.0); Hemoglobin 12.3 g/dL (13.5-17.5); Mean Corpuscular Hemoglobin 32.5 pg (28.0-32.0); Mean Corpuscular Volume 91.3 fL (80.0-100.0); Nucleated Red Blood Cells % 0.0 %
[2024-10-03 08:22] LABS: Alanine Aminotransferase 19 U/L (7-40); Albumin 3.8 g/dL (3.2-4.8); Alkaline Phosphatase 49 U/L (46-116); Anion Gap 10 (5-15); BUN/Creatinine Ratio 10.3 (10.0-20.0); Carbon Dioxide 22 mmol/L (20-31); Glucose 102 mg/dL (74-106); Potassium 3.9 mmol/L (3.5-5.1); Sodium 139 mmol/L (136-145); Total Protein 6.4 g/dL (5.7-8.2)
[2024-10-03 08:30] LABS: Bilirubin, Total 1.4 mg/dL (0.2-1.0); Blood Urea Nitrogen 9 mg/dL (9-23); Calcium 8.5 mg/dL (8.7-10.4); Chloride 107 mmol/L (98-107)
[2024-10-03 09:00] VITALS: BP_SYST 109; BP_SYST 164; BP_DIAS 71; BP_DIAS 75; PULSE 63; PULSE 89; RESP 16; TEMP 97.8; TEMP 97.9; O2SAT 100; O2SAT 97
[2024-10-03] MEDS ORDERED: AUG875T PO (12:24)
[2024-10-03] MEDS ORDERED: HYDR-4902 PO (12:24)
[2024-10-03] MEDS ORDERED: SENN-105 PO (12:26)
[2024-10-03 12:58] VITALS: BP 104/53; PULSE 84; RESP 18; TEMP 97.6; O2SAT 96
--- NOTE | 2024-10-03 15:35 | DVHDS2 ---
Discharge Summary Date of Admission Oct 01, 2024 at 15:35 Date of Discharge: Oct 03, 2024 Admitting Diagnosis Acute appendicitis Labs/Diagnostic Data: Laboratory Results Test 10/03/24 06:59 10/01/24 19:05 White Blood Count 10.9 10^3/uL (4.4-10.8) Red Blood Count 3.77 10^6/uL (4.5-5.90) Hemoglobin 12.3 g/dL (13.5-17.5) Hematocrit 34.4 % (41.0-53.0) Mean Corpuscular Volume 91.3 fL (80.0-100.0) Mean Corpuscular Hemoglobin 32.5 pg (28.0-32.0) Mean Corpuscular Hemoglobin Concent 35.6 g/dL (32.0-36.0) Red Cell Distribution Width 12.9 % (11.8-14.3) Platelet Count 169 10^3/uL (140-450) Mean Platelet Volume 10.6 fL (6.9-10.8) Neutrophils (%) (Auto) 71.9 % (37.0-80.0) Lymphocytes (%) (Auto) 17.0 % (10.0-50.0) Monocytes (%) (Auto) 10.6 % (0.0-12.0) Eosinophils (%) (Auto) 0.2 % (0.0-7.0) Basophils (%) (Auto) 0.3 % (0.0-2.0) Neutrophils # (Auto) 7.8 10 ^3/uL (1.6-8.6) Lymphocytes # (Auto) 1.9 10 ^3/uL (0.4-5.4) Monocytes # (Auto) 1.2 10 ^3/uL (0-1.3) Eosinophils # (Auto) 0 10 ^3/uL (0-0.8) Basophils # (Auto) 0 10 ^3/uL (0-0.2) Nucleated Red Blood Cells 0.0 % Sodium Level 139 mmol/L (136-145) Potassium Level 3.9 mmol/L (3.5-5.1) Chloride Level 107 mmol/L (98-107) Carbon Dioxide Level 22 mmol/L (20-31) Anion Gap 10 (5-15) Blood Urea Nitrogen 9 mg/dL (9-23) Creatinine 0.87 mg/dL (0.700-1.30) Glomerular Filtration Rate Calc 118 mL/min (>90) BUN/Creatinine Ratio 10.3 (10.0-20.0) Serum Glucose 102 mg/dL (74-106) Calcium Level 8.5 mg/dL (8.7-10.4) Total Bilirubin 1.4 mg/dL (0.2-1.0) Aspartate Amino Transferase (AST) 35 U/L (13-40) Alanine Aminotransferase (ALT) 19 U/L (7-40) Alkaline Phosphatase 49 U/L (46-116) Total Protein 6.4 g/dL (5.7-8.2) Albumin 3.8 g/dL (3.2-4.8) Prothrombin Time 11.3 sec (9.3-11.8) Prothrombin Time INR 1.07 (0.9-1.15) Activated Partial Thromboplast Time 33.9 SEC (24.5-34.5) Other Laboratory Tests 10/03/24 06:59 Brief Hx & Hospital Course: 34-year-old male presenting for acute appendicitis. Surgery consulted. Patient is status post appendectomy. Please see full surgical report. Tolerated procedure well. Discharged home with close follow-up from surgery. Pain is controlled in the hospital after surgery. Condition at Discharge: Good Final Diagnosis/Problems List appendictis Discharge Disposition: Home Discharge Instruct/Medications Diet: Regular Activity: Light activity Follow Up/Referral: follow up with surgery in clinic. Scheduled Amoxicillin & Pot Clavulanate (Augmentin Tablet), 875 MG PO BID Scheduled PRN Hydrocodone-Acetaminophen (Hydrocodone Bitartrate/AC 5-325 mg), 1 TAB PO Q8HR PRN Senna (Senna), 8.6 MG PO BID PRN Discharge Statement: "Patient was advised to return to the ER or call 911 if any headaches, dizziness, shortness of breath, chest pain, abdominal pain, bleeding, fevers, or worsening of medical condition. Patient was counseled about treatment plan, medications, possible side effects, patientverbalized understanding. All questions were answered to the best of my ability. This discharge took greater then 30 minutes in planning, reviewing documentation, counseling the patient, and discussing with other team members." ASSESSMENT ASSESSMENT Assessment appendictis Date of Service: Oct 03, 2024 Billing Provider: LISS SOTO MD Common Visit Codes: [id number] DISCH DAY <30MIN LISS SOTO MD Oct 03, 2024 15:35
== END 2024-10-03 14:10 | disposition home or self-care (01) | DRG 399 ==
LOC: EEVIPCON 06:19 → ER 06:19 → OVERFLOW 15:35 → WEST WING 17:43
PROVIDERS: ADMIT Internal Medicine; ATTEND Internal Medicine
PROC: 0DTJ4ZZ Resection of Appendix, Percutaneous Endoscopic Approach (ICD-10-PCS; principal; 2024-10-02 07:56)
DX: K35.80 Unspecified acute appendicitis (principal)
CPT/HCPCS: 36415; 74176; 80048; 80053; 85025; 85610; 85730; 86850; 86900; 86901; 87040; 96365; 96375; 99291; G0378; J0330; J1100; J2250; J2405; J2704; J3490